=== PATIENT | female | born 1955 | race Caucasian/White ===

== ENCOUNTER 2021-08-09 17:10 | Emergency (ER) | payer SELFPAY ==
[2021-08-09] MEDS ORDERED: HYDROmorphone 1 MG/ML Syringe IM ONE (17:35)
[2021-08-09] MEDS ORDERED: Ketorolac 60 MG/2 ML SDV IM ONE (18:36)
[2021-08-09] MEDS ORDERED: Acetaminophen/HYDROcodone 325-5 MG Tab PO ONE (19:52)
[2021-08-09 20:20] LABS: ESTIMATED GFR > 60 mL/min (>60)
== END 2021-08-09 21:30 | disposition home or self-care (01) ==
LOC: JD.ED 17:10
DX: S42.292A Other displaced fracture of upper end of left humerus, initial encounter for closed fracture (principal); V18.0XXA Pedal cycle driver injured in noncollision transport accident in nontraffic accident, initial encounter; Y92.410 Unspecified street and highway as the place of occurrence of the external cause
CPT/HCPCS: 36415; 73030; 73070; 73200; 80053; 84484; 85025; 93005; 96372; 99284; A9270; J1170; J1885; 93010